=== PATIENT | male | born 1970 | race Hispanic/Latino ===

== ENCOUNTER 2016-11-30 16:50 | Emergency (ER) | payer MEDICAID ==
[2016-11-30 17:05] VITALS: RESP 16; TEMP 98.2; O2SAT 99
--- NOTE | 2016-11-30 17:32 | ED PDOC ---
Lower Extremity Pain/Injury Chief Complaint (Provider): right leg pain History Per: Patient (46 y/o male h/o right hip pain radiating down back of leg on and off x 1 month. Was seen by orthopedist and told he may have 'pinched nerve.' Patient is pending MRI of lumbar spine but had to reschedule for December. States he was taking naproxen/baclofen originally but stopped 2 weeks prior. States he notes pain is bad if he stands for long time in shower. Denies any urinary /rectal incontinence. Denies any h/o iv drug abuse. Patient notes he has taken 2 oxydone (borrowed from friend) that seemed to relieve pain when it is at its worst. ) <Delano Sal - Last Filed: 11/30/16 17:36> <Yolanda Delaney - Last Filed: 12/03/16 08:02> Time Seen by Provider: 11/30/16 17:28 Chief Complaint (Nursing): Lower Extremity Problem/Injury Past Medical History Reviewed: Historical Data, Nursing Documentation, Vital Signs Vital Signs: Last Vital Signs Temp 98.2 F 11/30/16 16:59 Pulse 91 H 11/30/16 16:59 Resp 16 11/30/16 16:59 BP 136/94 H 11/30/16 16:59 Pulse Ox 99 11/30/16 16:59 - Family History Family History: States: No Known Family Hx <Delano Sal - Last Filed: 11/30/16 17:36> Vital Signs: Last Vital Signs Temp 98.2 F 11/30/16 16:59 Pulse 87 11/30/16 17:47 Resp 16 11/30/16 16:59 BP 131/86 11/30/16 17:47 Pulse Ox 99 11/30/16 17:36 <Yolanda Delaney - Last Filed: 12/03/16 08:02> - Home Medications Home Medications: Ambulatory Orders Medication Instructions Recorded Naproxen 1 tab PO BID PRN #14 tab 11/30/16 - Allergies Allergies/Adverse Reactions: Allergies Allergy/AdvReac Type Severity Reaction Status Date / Time No Known Allergies Allergy Verified 11/30/16 16:59 Review of Systems ROS Statement: Except As Marked, All Systems Reviewed And Found Negative Musculoskeletal: Positive for: Back Pain, Leg Pain <Delano Sal - Last Filed: 11/30/16 17:36> Physical Exam - Reviewed Nursing Documentation Reviewed: Yes Vital Signs Reviewed: Yes - Physical Exam Appears: Positive for: Well, Non-toxic, No Acute Distress Head Exam: Positive for: ATRAUMATIC, NORMAL INSPECTION, NORMOCEPHALIC Skin: Positive for: Normal Color, Warm, DRY Eye Exam: Positive for: EOMI, Normal appearance, PERRL ENT: Positive for: Normal ENT Inspection Neck: Positive for: Normal, Painless ROM Cardiovascular/Chest: Positive for: Regular Rate, Rhythm Respiratory: Positive for: CNT, Normal Breath Sounds Gastrointestinal/Abdominal: Positive for: Normal Exam, Bowel Sounds, Soft Back: Positive for: Normal Inspection Extremity: Positive for: Normal ROM, Other (minimal sciatic raise noted. 5/5 dorsoflexion/plantarflexion noted.) Neurologic/Psych: Positive for: Alert, Oriented <Delano Sal B - Last Filed: 11/30/16 17:36> - ECG O2 Sat by Pulse Oximetry: 99 - Progress ED Course And Treament: Patient does not want any medication currently as has minimal pain currently. Will f/u with Dr. Flores for physical therapy referral. <Delano Sal B - Last Filed: 11/30/16 17:36> Disposition - Patient ED Disposition Is Patient to be Admitted: No - Disposition Disposition: Routine/Home Disposition Time: 17:34 <Delano Sal B - Last Filed: 11/30/16 17:36> <Yolanda Delaney F - Last Filed: 12/03/16 08:02> - Clinical Impression Clinical Impression: Sciatica - Disposition Condition: FAIR Prescriptions: Naproxen 1 tab PO BID PRN #14 tab PRN Reason: Pain, Severe (8-10) Instructions: Sciatica (ED) Forms: [facility] ED School/Work Excuse
[2016-11-30 17:48] VITALS: BP 131/86; PULSE 87
== END 2016-11-30 17:47 | disposition home or self-care (01) ==
LOC: H.ER 16:50
DX: M54.31 Sciatica, right side (principal)